=== PATIENT | female | born 1965 | race Caucasian/White ===

== ENCOUNTER 2022-05-07 13:50 | Outpatient (CLI) | payer OTHER, SELFPAY | END 2022-05-07 13:51 | disposition home or self-care (01) | DX: H90.A22 Sensorineural hearing loss, unilateral, left ear, with restricted hearing on the contralateral side (principal); H90.A31 Mixed conductive and sensorineural hearing loss, unilateral, right ear with restricted hearing on the contralateral side | CPT/HCPCS: 92557; 92567 ==